=== PATIENT | female | born 1985 | race African-American/Black ===

== ENCOUNTER 2024-09-27 01:12 | Observation (INO) ==
--- NOTE | 2024-09-27 01:59 | Emergency Department Note ---
Impression & Plan Cholecystitis the patient will be evaluated by general surgery ED Provider Note NAME: QUINTEN MCKEON AGE: 39 SEX: Female INFORMANT: Patient ED PROVIDER(S): Dana Castillo DO CHIEF COMPLAINT: Epigastric pain PLAN: Disposition: the patient will be evaluated by general surgery MEDICAL DECISION MAKING: this is a 39-year-old female patient who presents to the emergency department after waking suddenly with severe epigastric abdominal pain that radiated up into her chest. She describes associated shortness of breath and nausea. Laboratory studies reveal no leukocytosis. The patient is anemic with a hemoglobin of 10.5 which is baseline for her. Renal function and glucose were normal. Troponin was negative. Patient was significantly hypertensive. Patient does have a history of hypertension. Patient went for CT angiogram of the chest, abdomen/pelvis. This was unremarkable for any acute aortic abnormality. There were gallstones. patient was given IV Dilaudid and IV Zofran for the pain in her abdomen which gave her significant relief. Patient had an ultrasound of the right upper quadrant to further evaluate the gallbladder. This was positive for acute cholecystitis. Care/management discussed with: Dr. Lira-general surgery Triage Nursing notes: reviewed and agree with them. Vital Signs: reviewed and remarkable for hypertension Chronic Medical/Social Conditions affecting care: hypertension Differential Diagnosis: aortic dissection, pancreatitis, gastritis, cholecystitis Diagnostics, independently interpreted by me: ECG: normal sinus rhythm at a rate of [address] segment ovation or signs of ischemia. There is no ectopy. Cardiac Monitoring: Normal sinus rhythm at a rate of 93 Imaging studies: CTA of the chest: As per [facility] CTA of the abdomen: As per [facility] right upper quadrant ultrasound:As per [facility] HPI: 39 year old Female arrives for evaluation of Epigastric abdominal pain. Epigastric abdominal pain that radiated up into her chest. She describes associated shortness of breath and nausea.. PAST MEDICAL HISTORY: hypertension, irritable bowel syndrome, [id number] diabetes, sleep apnea, SOCIAL HISTORY: patient works as a assistant infant toddler teacher, HOME MEDICATIONS: see list ALLERGIES: see list VITALS: See Below PHYSICAL EXAMINATION: HEENT: Head - normocephalic and atraumatic. Pupils are equal, round, and reactive to light. Extraocular eye muscles are intact, and sclera are anicteric. Nose - moist nasal mucosa without discharge. Mouth - moist buccal mucosa. Oropharynx is nonerythematous and there is no tonsillar exudate or edema noted. Neck: Supple; no cervical lymphadenopathy or thyromegaly Heart: Regular rate and rhythm. There is a normal S1 and S2 with no murmurs, clicks, or gallops appreciated. Lungs: Clear to auscultation bilaterally with no wheezes, rales, or rhonchi. Abdomen: Soft, Moderate tenderness to palpation in the epigastrium and right upper quadrant. There are no palpable pulsatile masses or hepatosplenomegaly. There is no guarding, rigidity, or rebound noted. Extremities: No evidence of cyanosis, clubbing, or edema. There are easily palpable peripheral pulses. Skin: warm and dry with good turgor and no rashes. Emergency department treatment: licensed occupational therapy assistant, IV Dilaudid, IV Zofran, IV normal saline drip emergency department course: The patient was evaluated in room C-9. A complete history and physical was performed. IV lock was initiated and labs were drawn as above. Patient had CT angiograms of the abdomen/pelvis and chest. She was given a dose of IV Dilaudid and IV Zofran for the pain. She then went on to have an ultrasound of the right upper quadrant. I started the patient on normal saline drip. I kept her n.p.o. I discussed the case with general surgery. Past Med/Surg History Problem List (Updated 09/27/24 @ 07:15 by Dana Castillo DO) Cholecystitis (Acute) Breast hypertrophy in female (Acute) Medical History COVID-19 Social History Smoking Status: Never smoker Preferred Language: Occitan Feels Safe at Home: Yes Allergies Allergies Allergy/AdvReac Type Severity Reaction Status Date / Time oseltamivir [From Tamiflu] Allergy Hives Unverified 07/17/24 10:59 Home Meds Home Medications Medication Instructions Recorded Confirmed albuterol sulfate 2.5 mg/3 mL 2.5 mg inhalation Q4 PRN wheeze 07/17/24 07/17/24 (0.083 %) solution for nebulization albuterol sulfate 90 mcg/actuation 2 puff inhalation Q6 PRN Wheezing 07/17/24 07/17/24 aerosol inhaler amlodipine 10 mg tablet 10 mg PO QAM 07/17/24 07/17/24 dicyclomine 10 mg capsule 10 mg PO TID PRN IBS pain 07/17/24 07/17/24 duloxetine 30 mg capsule,delayed 30 mg PO QAM 07/17/24 07/17/24 release hydrochlorothiazide 12.5 mg capsule 12.5 mg PO QAM 07/17/24 07/17/24 ibuprofen 200 mg tablet 800 mg PO Q6H PRN Pain 07/17/24 07/17/24 meclizine 12.5 mg tablet 12.5 mg PO TID PRN Dizziness 07/17/24 07/17/24 tirzepatide 5 mg/0.5 mL 5 mg subcut WK 07/17/24 07/17/24 subcutaneous pen injector (Addie) Results & Data (ED) Vital Signs Vital Signs - 24 hr 09/27/24 01:22 09/27/24 01:33 09/27/24 01:51 Temperature 36.6 C Temperature Source Temporal Artery Scan Pulse Rate 100 H 93 H Pulse Rate from SpO2 Sensor Pulse Rhythm Regular Pulse Strength Normal Respiratory Rate 18 Respiratory Effort / Characteristics Non-Labored Spontaneous Respiratory Depth Normal Respiratory Pattern Regular Blood Pressure 153/92 H Blood Pressure Mean 112 Pulse Oximetry 98 95 Oxygen Delivery Method Room Air Room Air Sepsis Recent Fever Within 48 Hours No Sepsis New/Unexplained Change in Mental Status No Sepsis Action Taken by Nursing No Action Required 09/27/24 02:16 09/27/24 02:33 09/27/24 03:30 Temperature Temperature Source Pulse Rate 90 88 85 Pulse Rate from SpO2 Sensor Pulse Rhythm Pulse Strength Respiratory Rate 18 17 15 Respiratory Effort / Characteristics Respiratory Depth Respiratory Pattern Blood Pressure 172/122 H 165/107 H 151/105 H Blood Pressure Mean 136 126 120 Pulse Oximetry 98 95 93 Oxygen Delivery Method Room Air Room Air Room Air Sepsis Recent Fever Within 48 Hours Sepsis New/Unexplained Change in Mental Status Sepsis Action Taken by Nursing 09/27/24 04:00 09/27/24 04:30 09/27/24 05:15 Temperature Temperature Source Pulse Rate 90 82 87 Pulse Rate from SpO2 Sensor Pulse Rhythm Pulse Strength Respiratory Rate 16 16 17 Respiratory Effort / Characteristics Respiratory Depth Respiratory Pattern Blood Pressure 164/133 H 148/96 H 155/102 H Blood Pressure Mean 139 131 119 Pulse Oximetry 95 95 97 Oxygen Delivery Method Room Air Room Air Sepsis Recent Fever Within 48 Hours Sepsis New/Unexplained Change in Mental Status Sepsis Action Taken by Nursing 09/27/24 05:30 09/27/24 05:41 09/27/24 06:06 Temperature Temperature Source Pulse Rate 86 89 84 Pulse Rate from SpO2 Sensor Pulse Rhythm Pulse Strength Respiratory Rate 14 17 Respiratory Effort / Characteristics Respiratory Depth Respiratory Pattern Blood Pressure Blood Pressure Mean Pulse Oximetry 91 96 Oxygen Delivery Method Sepsis Recent Fever Within 48 Hours Sepsis New/Unexplained Change in Mental Status Sepsis Action Taken by Nursing 09/27/24 07:01 09/27/24 07:06 Temperature Temperature Source Pulse Rate 93 H Pulse Rate from SpO2 Sensor 92 H Pulse Rhythm Pulse Strength Respiratory Rate 18 Respiratory Effort / Characteristics Respiratory Depth Respiratory Pattern Blood Pressure 132/100 Blood Pressure Mean 110 Pulse Oximetry 95 Oxygen Delivery Method Sepsis Recent Fever Within 48 Hours Sepsis New/Unexplained Change in Mental Status Sepsis Action Taken by Nursing Laboratory Data 09/27/24 01:31 09/27/24 01:31 Lab Results 09/27/24 Range/Units 01:31 WBC 9.34 (4.8-10.8) K/ul RBC 4.33 (4.20-5.40) M/uL Hgb 10.5 L (12.0-16.0) g/dl Hct 34.7 L (37.0-47.0) % MCV 80.1 (80.0-100.0) fL MCH 24.2 L (25.0-34.0) pg MCHC 30.3 L (32.0-36.0) g/dL RDW Std Deviation 43.0 (36.4-46.3) fL RDW Coeff of Dylon 14.8 H (11.5-14.5) % Plt Count 382 (130-400) K/uL MPV 10.8 (9.4-12.4) fL Immature Gran % (Auto) 0.2 % Neut % (Auto) 55.6 % Lymph % (Auto) 38.8 % Cloud % (Auto) 4.0 % Eos % (Auto) 0.9 % Baso % (Auto) 0.5 % Neut # (Auto) 5.20 (1.40-6.50) K/uL Lymph # (Auto) 3.62 H (1.20-3.40) K/uL Cloud # (Auto) 0.37 (0.11-0.59) K/uL Eos # (Auto) 0.08 (0.00-0.50) K/uL Baso # (Auto) 0.05 (0.00-0.20) K/uL Immature Gran # (Auto) 0.02 (0.01-0.20) K/uL Sodium 138 (136-145) mmol/L Potassium 3.7 (3.5-5.1) mmol/L Chloride 105 (98-107) mmol/L Carbon Dioxide 29 (21-32) mmol/L Anion Gap 4 (3-11) BUN 16 (6-23) mg/dl Creatinine 0.91 (0.6-1.2) mg/dl Est Cr Clr Drug Dosing 98.4 ml/min eGFR 83.33 BUN/Creatinine Ratio 17.6 (10-20) Glucose 99 (70-99(Fasting)) mg/dl Calcium 9.2 (8.6-10.3) mg/dl Total Bilirubin 0.3 (0.2-1.0) mg/dl AST 12 L (13-39) U/L ALT 8 (7-52) U/L Alkaline Phosphatase 66 (34-104) U/L Troponin I High Sens 3.4 (0-14) pg/ml Total Protein 7.5 (6.0-8.3) gm/dl Albumin 4.1 (3.4-5.0) gm/dl Globulin 3.4 (2.5-4.0) gm/dl Albumin/Globulin Ratio 1.2 (0.9-2) Lipase 20 (11-82) U/L Administered Medications Sodium Chloride (Nss) 500 mls @ 125 mls/hr IV .Q4H LAINEY Stop: 09/27/24 10:14 Last Admin: 09/27/24 06:26 Dose: 125 mls/hr Documented By: ALEC Discontinued Medications Hydromorphone HCl (Hydromorphone Inj 1 Mg/Ml Syringe) 1 mg IV NOW STA Stop: 09/27/24 01:54 Last Admin: 09/27/24 02:07 Dose: 1 mg Documented By: ALEC Ioversol (Optiray 320 125ml) 125 ml IV ONCE ONE Stop: 09/27/24 02:53 Last Admin: 09/27/24 02:52 Dose: 118 ml Documented By: ELMER Ondansetron HCl (Ondansetron Inj 2 Mg/Ml 2 Ml Vial) 4 mg IV NOW STA Stop: 09/27/24 01:54 Last Admin: 09/27/24 02:07 Dose: 4 mg Documented By: ALEC Imaging Data Radiologist's Impression: Chest CTA 09/27/24 01:51 EXAM: CT angio chest dissec wo/w con CLINICAL HISTORY: EPIGASTRIC PAIN EVAL FOR DISSECTION. TECHNIQUE: Contiguous 3.[address] angiographic images of the chest were acquired withand without the administration of intravenous contrast. Coronal and sagittal reconstructions were obtained. 118 ml Optiray 320 was administered for post-contrast images. One of these 3D techniques was utilized: Maximum Intensity Pixel (MIP), 3D Reconstructed Images, Volume Rendered Images, Surface Shaded Rendering. One of the following dose reduction techniques were utilized for this exam: Automated exposure control, adjustment of the mA and/or kV according to patient size, and use of iterative reconstruction. DLP: 3454.02 mGy-cm, CTDI: 72.84 mGy. COMPARISON: CTA dated 12/13/2022. FINDINGS: Aorta: Mild dilated ascending aorta measures 34 mm, follow-up is needed. No evidence of aneurysm, dissection, or significant atherosclerotic changes. The aortic arch and descending thoracic aorta are unremarkable. Pulmonary Arteries: The dilated pulmonary trunk measures 31 mm, which could be pulmonary hypertension, clinical correlation is needed. No evidence of pulmonary embolism. No stenosis or filling defects. Superior Vena Cava (SVC) and Inferior Vena Cava (IVC): Normal opacification and caliber. No evidence of thrombus or obstruction. Coronary Arteries: Coronary arteries are well-opacified. No significant stenosis or atherosclerotic changes. Mediastinum: No mediastinal mass or lymphadenopathy. Normal appearance of the thymus. Heart: Normal size and morphology of the heart. No pericardial effusion. Lungs: Lungs are clear with no evidence of consolidation, nodules, or masses. No pleural effusion or thickening. Bones: No fractures or lytic/sclerotic lesions of the visualized bony structures. Normal alignment and bone density. Soft Tissues: Normal appearance of the visualized soft tissues. No abnormal masses or fluid collections. The scanned upper abdomen shows gallstone. IMPRESSION: 1. Normal CT angiography of the chest. 2. Dilated pulmonary trunk measures 31 mm, could be pulmonary hypertension, clinical correlation is needed. 3. No evidence of significant vascular abnormalities. 4. No interval changes. 5. Gallstone noted. Electronically signed by Keshawn Santo 09-27-2024 04:16 AM Abdomen/Pelvis CTA 09/27/24 01:52 EXAM: CT angio abd pelvis wo/w con CLINICAL HISTORY: EPIGASTRIC PAIN EVAL FOR DISSECTION. TECHNIQUE: CT angiography of the abdomen and pelvis was performed with and without intravenous contrast using, the following protocol: axial images, and reconstructed coronal and sagittal images. Non-contrast images were initially acquired, followed by contrast-enhanced images in arterial and venous phases. 118 ml optiray 320 was administered using automated injection techniques. Bolus tracking was employed to optimize arterial phase imaging. For CTA's we need the post-processing techniques that constitute a CTA study. Physicians must state in their dictation:"One of these 3D techniques was utilized: Maximum Intensity Pixel (MIP), 3D Reconstructed Images, Volume Rendered Images, Surface Shaded Rendering. One of the following dose reduction techniques was utilized for this exam: Automated exposure control, adjustment of the mA and/or kV according to patient size, and use of iterative reconstruction. DLP: 3454.02 mGy-cm, CTDI: 72.84 mGy. COMPARISON: 07/17/2024 FINDINGS: Abdominal Aorta: The abdominal aorta is normal in caliber, with no evidence of aneurysm, dissection, or significant atherosclerotic disease. Celiac Artery and Branches: The celiac artery and its branches (left gastric artery, splenic artery, common hepatic artery) are patent without stenosis or aneurysm. Superior Mesenteric Artery (SMA): The SMA is patent, with normal origin and course. No evidence of stenosis, aneurysm, or dissection. Renal Arteries: Both renal arteries are patent with no evidence of stenosis, occlusion, or aneurysm. Normal enhancement of renal parenchyma. Inferior Mesenteric Artery (CORDELIA): The CORDELIA is patent with no evidence of stenosis or occlusion. Pelvic Arteries: The iliac arteries (common, internal, and external) are patent bilaterally without evidence of stenosis, occlusion, or aneurysm. Other Abdominal and Pelvic Vessels: The portal vein, splenic vein, and superior mesenteric vein are patent with normal enhancement. Solid Organs: Liver: Fatty liver, Normal in size, and shape. No focal lesions. Normal enhancement pattern. Gallbladder and Biliary System: Gallbladder is distended, showing dense solitary gallstone, no wall thickening. Bile ducts are normal in caliber. Pancreas: Normal in size and density. No masses or cysts. Normal enhancement. Spleen: Normal in size and density. No focal lesions. Normal enhancement. Kidneys and Adrenal Glands: Normal in size and shape. No renal masses or hydronephrosis. Adrenal glands are unremarkable. Normal enhancement. Bowel: No evidence of bowel obstruction or significant bowel wall thickening. No abnormal enhancement. Peritoneal and Retroperitoneal Structures: No free fluid or abnormal fluid collections were identified within the abdomen or pelvis. No lymphadenopathy was noted. Normal uterus with a small left unilocular ovarian cyst suggestive of a follicular cyst. Non-complicated single sigmoid colonic contrast-filled diverticulosis. Bones and Soft Tissues: Pelvic bones and soft tissues are unremarkable. No fractures or abnormal masses were identified. IMPRESSION: 1. Normal aorta and branches, no evidence of aneurysm or dissection. 2. Gallstone. 3. Left ovarian follicular cyst. 4. Non-complicated single sigmoid colonic contrast-filled diverticulosis. 5. fatty liver. Electronically signed by Keshawn Santo 09-27-2024 04:24 AM Gallbladder Ultrasound 09/27/24 04:36 EXAM: US gallbladder CLINICAL HISTORY: Epigastric pain with gallstones. TECHNIQUE: An ultrasound examination of the RUQ was performed using a high-frequency transducer. Scanning was performed with the patient in the supine position. COMPARISON: CT dated 07/17/2024 was reviewed. FINDINGS: The visualized part of the pancreas appeared unremarkable. Liver: Liver size: The liver is seen enlarged measuring 16 cm with increased echotexture. No evidence of focal lesions, cysts, or masses. Hepatic vasculature appears normal. Gallbladder: The gallbladder is visualized and appears normal in size and shape. Stones are seen within the gallbladder neck with increased wall thickness measuring up to 6 mm. No pericholecystic fluid was seen. Degroot's sign could not be properly assessed due to medication. Biliary Tree: Common bile duct diameter: 2.7 mm. The common bile duct is within normal limits in caliber and not dilated. No evidence of choledocholithiasis or biliary obstruction. Right Kidney: Right kidney size: Measures 11.8 cm. The right kidney appears normal in size with preserved corticomedullary differentiation. No evidence of hydronephrosis, renal cysts, or masses. Additional Findings: None. IMPRESSION: 1. Fatty enlarged liver. 2. Fixed cholelithiasis with increased gallbladder wall thickening suggesting acute cholecystitis. Degroot's sign could not be properly assessed due to medication. No pericholecystic fluid was seen. 3. The common bile duct is not dilated. RECOMMENDATIONS: Clinical correlation with symptoms and further evaluation as indicated. Electronically signed by Keshawn Santo 09-27-2024 05:59 AM Discharge Plan Visit Data Chief Complaint: Abdominal Pain Stated Complaint: PAIN IN UPPER ABDOMIN ED Provider: Dana Castillo Discharge Problem: Cholecystitis Forms Stand Alone [facility]: [facility] [employer] Prescriptions Prescriptions: No Action albuterol sulfate 2.5 mg /3 mL (0.083 %) solution for nebulization 2.5 mg inhalation Q4 PRN (Reason: wheeze) meclizine 12.5 mg tablet 12.5 mg PO TID PRN (Reason: Dizziness) amlodipine 10 mg tablet 10 mg PO QAM hydrochlorothiazide 12.5 mg capsule 12.5 mg PO QAM ibuprofen 200 mg Tablet 800 mg PO Q6H PRN (Reason: Pain) albuterol sulfate 90 mcg/actuation HFA aerosol inhaler 2 puff INHALATION Q6 PRN (Reason: Wheezing) Rx Instructions: when sick she uses every 4 hours prn dicyclomine 10 mg capsule 10 mg PO TID PRN (Reason: IBS pain) duloxetine 30 mg capsule,delayed release(DR/EC) 30 mg PO QAM Rx Instructions: with food Mounjaro 5 mg/0.5 mL pen injector 5 mg SUBCUT WK Rx Instructions: every thursday Referrals Referrals: Elliott Ireland MD [Primary Care Provider] -
[2024-09-27 02:06] LABS: Basophils # (auto) 0.05 K/uL (0.00-0.20); Basophils % (auto) 0.5 %; Eosinophils # (auto) 0.08 K/uL (0.00-0.50); Eosinophils % (auto) 0.9 %; Hematocrit (blood only) 34.7 % (37.0-47.0); Hemoglobin 10.5 g/dl (12.0-16.0); Immature Granulocytes # (auto) 0.02 K/uL (0.01-0.20); Immature Granulocytes % (auto) 0.2 %; Lymphocytes # (auto) 3.62 K/uL (1.20-3.40); Lymphocytes % (auto) 38.8 %; Mean Corpuscular Hemoglobin 24.2 pg (25.0-34.0); Mean Corpuscular Hgb Conc 30.3 g/dL (32.0-36.0); Mean Corpuscular Volume 80.1 fL (80.0-100.0); Mean Platelet Volume 10.8 fL (9.4-12.4); Monocytes # (auto) 0.37 K/uL (0.11-0.59); Neutrophils % (auto) 55.6 %; Platelet Count 382 K/uL (130-400); RDW Coefficient of Variation 14.8 % (11.5-14.5); Red Blood Count 4.33 M/uL (4.20-5.40); White Blood Count 9.34 K/ul (4.8-10.8)
[2024-09-27] MEDS: ONDANSETRON INJ 2 MG/ML 2 ML VIAL IV STA (02:07)
[2024-09-27] MEDS: HYDROmorphone INJ 1 MG/ML SYRINGE IV STA (02:07)
[2024-09-27 02:24] LABS: Albumin Globulin Ratio 1.2 (0.9-2); Albumin Level 4.1 gm/dl (3.4-5.0); BUN Creatinine Ratio 17.6 (10-20); Bilirubin,Total 0.3 mg/dl (0.2-1.0); Calcium 9.2 mg/dl (8.6-10.3); Creatinine Clr Calc Pharmacy 98.4 ml/min; Globulin 3.4 gm/dl (2.5-4.0); Potassium 3.7 mmol/L (3.5-5.1); Total Protein 7.5 gm/dl (6.0-8.3)
[2024-09-27 02:31] LABS: Troponin I High Sensitivity 3.4 pg/ml (0-14)
[2024-09-27] MEDS: OPTIRAY 320 125ml IV ONE (02:52)
--- NOTE | 2024-09-27 04:16 | CT Scan Report ---
EXAM: CT angio chest dissec wo/w con CLINICAL HISTORY: EPIGASTRIC PAIN EVAL FOR DISSECTION. TECHNIQUE: Contiguous 3.[address] angiographic images of the chest were acquired withand without the administration of intravenous contrast. Coronal and sagittal reconstructions were obtained. 118 ml Optiray 320 was administered for post-contrast images. One of these 3D techniques was utilized: Maximum Intensity Pixel (MIP), 3D Reconstructed Images, Volume Rendered Images, Surface Shaded Rendering. One of the following dose reduction techniques were utilized for this exam: Automated exposure control, adjustment of the mA and/or kV according to patient size, and use of iterative reconstruction. DLP: 3454.02 mGy-cm, CTDI: 72.84 mGy. COMPARISON: CTA dated 12/13/2022. FINDINGS: Aorta: Mild dilated ascending aorta measures 34 mm, follow-up is needed. No evidence of aneurysm, dissection, or significant atherosclerotic changes. The aortic arch and descending thoracic aorta are unremarkable. Pulmonary Arteries: The dilated pulmonary trunk measures 31 mm, which could be pulmonary hypertension, clinical correlation is needed. No evidence of pulmonary embolism. No stenosis or filling defects. Superior Vena Cava (SVC) and Inferior Vena Cava (IVC): Normal opacification and caliber. No evidence of thrombus or obstruction. Coronary Arteries: Coronary arteries are well-opacified. No significant stenosis or atherosclerotic changes. Mediastinum: No mediastinal mass or lymphadenopathy. Normal appearance of the thymus. Heart: Normal size and morphology of the heart. No pericardial effusion. Lungs: Lungs are clear with no evidence of consolidation, nodules, or masses. No pleural effusion or thickening. Bones: No fractures or lytic/sclerotic lesions of the visualized bony structures. Normal alignment and bone density. Soft Tissues: Normal appearance of the visualized soft tissues. No abnormal masses or fluid collections. The scanned upper abdomen shows gallstone. IMPRESSION: 1. Normal CT angiography of the chest. 2. Dilated pulmonary trunk measures 31 mm, could be pulmonary hypertension, clinical correlation is needed. 3. No evidence of significant vascular abnormalities. 4. No interval changes. 5. Gallstone noted. Electronically signed by Keshawn Santo 09-27-2024 04:16 AM
--- NOTE | 2024-09-27 04:25 | CT Scan Report ---
EXAM: CT angio abd pelvis wo/w con CLINICAL HISTORY: EPIGASTRIC PAIN EVAL FOR DISSECTION. TECHNIQUE: CT angiography of the abdomen and pelvis was performed with and without intravenous contrast using, the following protocol: axial images, and reconstructed coronal and sagittal images. Non-contrast images were initially acquired, followed by contrast-enhanced images in arterial and venous phases. 118 ml optiray 320 was administered using automated injection techniques. Bolus tracking was employed to optimize arterial phase imaging. For CTA's we need the post-processing techniques that constitute a CTA study. Physicians must state in their dictation:"One of these 3D techniques was utilized: Maximum Intensity Pixel (MIP), 3D Reconstructed Images, Volume Rendered Images, Surface Shaded Rendering. One of the following dose reduction techniques was utilized for this exam: Automated exposure control, adjustment of the mA and/or kV according to patient size, and use of iterative reconstruction. DLP: 3454.02 mGy-cm, CTDI: 72.84 mGy. COMPARISON: 07/17/2024 FINDINGS: Abdominal Aorta: The abdominal aorta is normal in caliber, with no evidence of aneurysm, dissection, or significant atherosclerotic disease. Celiac Artery and Branches: The celiac artery and its branches (left gastric artery, splenic artery, common hepatic artery) are patent without stenosis or aneurysm. Superior Mesenteric Artery (SMA): The SMA is patent, with normal origin and course. No evidence of stenosis, aneurysm, or dissection. Renal Arteries: Both renal arteries are patent with no evidence of stenosis, occlusion, or aneurysm. Normal enhancement of renal parenchyma. Inferior Mesenteric Artery (CORDELIA): The CORDELIA is patent with no evidence of stenosis or occlusion. Pelvic Arteries: The iliac arteries (common, internal, and external) are patent bilaterally without evidence of stenosis, occlusion, or aneurysm. Other Abdominal and Pelvic Vessels: The portal vein, splenic vein, and superior mesenteric vein are patent with normal enhancement. Solid Organs: Liver: Fatty liver, Normal in size, and shape. No focal lesions. Normal enhancement pattern. Gallbladder and Biliary System: Gallbladder is distended, showing dense solitary gallstone, no wall thickening. Bile ducts are normal in caliber. Pancreas: Normal in size and density. No masses or cysts. Normal enhancement. Spleen: Normal in size and density. No focal lesions. Normal enhancement. Kidneys and Adrenal Glands: Normal in size and shape. No renal masses or hydronephrosis. Adrenal glands are unremarkable. Normal enhancement. Bowel: No evidence of bowel obstruction or significant bowel wall thickening. No abnormal enhancement. Peritoneal and Retroperitoneal Structures: No free fluid or abnormal fluid collections were identified within the abdomen or pelvis. No lymphadenopathy was noted. Normal uterus with a small left unilocular ovarian cyst suggestive of a follicular cyst. Non-complicated single sigmoid colonic contrast-filled diverticulosis. Bones and Soft Tissues: Pelvic bones and soft tissues are unremarkable. No fractures or abnormal masses were identified. IMPRESSION: 1. Normal aorta and branches, no evidence of aneurysm or dissection. 2. Gallstone. 3. Left ovarian follicular cyst. 4. Non-complicated single sigmoid colonic contrast-filled diverticulosis. 5. fatty liver. Electronically signed by Keshawn Santo 09-27-2024 04:24 AM
--- OUTSIDE RECORDS SUMMARY | 2024-09-27 05:54 | External Medical Summary | Summary of Care ---
Author Name Unknown Organization [facility] Address [address] [place] [address] Phone [phone] Care Team Providers Care Soda Column Operator Name Role Phone Nona Wiggins DO Primary Care Provider Encounter Details Date Type Department Care Team (Late st Contact Info) Description 08/09/2024 12:00 PM EST Telemedicine Nutrition & Weight Management, [facility] [address] [place] [id number] Yoko Rubio PA-C [address] [place] [id number] Morbid obesity due to excess calories (HCC)* Allergies Active Allergy Reactions Criticality Noted Date Comments Oseltamivir 10/17/2019 hive documented as of this encounter (statuses as of 08/09/2024) Medications ibuprofen (MOTRIN) 200 MG Tablet Take 2 Tablets by mouth every 8 hours as needed for Pain. Active traZODone HCl 50 MG Oral Tablet (Desyrel) as needed for Sleep. 3 Active Dicyclomine HCl 10 MG Oral Capsule (Bentyl)Indicatio ns:Irritable bowel syndrome with diarrhea Take 1 Capsule by mouth 3 times a day as needed for Pain. 90 Capsule 6 3 Active Albuterol Sulfate HFA 108 (90 Base) MCG/ACT Inhalation Aerosol Solution Inhale 2 Puffs by mouth every 6 hours as needed for Wheezing. 18 g 3 Active Meclizine HCl 12.5 MG Oral Tablet (Antivert) Take 1 Tablet by mouth 3 times a day as needed for Dizziness. Will cause drowsiness 30 Tablet 1 4 Active DULoxetine HCl 30 MG Oral Capsule Delayed Release Particles (Cymbalta) Take 1 Capsule by mouth in the morning. With food. 30 Capsule 4 Active Mounjaro 5 MG/0.5ML Subcutaneous Solution Pen-injector (Tirzepatide)Tiarra cations:Type 2 diabetes mellitus without complication, without long-term current use of insulin (HCC) Inject 5 mg under the skin once a week. 6 mL 1 4 Active Albuterol Sulfate (2.5 MG/3ML) 0.083% Inhalation Nebulization Solution (Proventil)Indica tions:Acute exacerbation of mild persistent extrinsic asthma Inhale 1 Vial via nebulizer every 4 hours as needed for Wheezing. 60 mL 1 4 Active hydroCHLOROthiazi de 12.5 MG Oral CapsuleIndication s:HTN, goal below 130/80 TAKE 1 CAPSULE BY MOUTH EVERY MORNING 90 Capsule 1 4 Active amLODIPine Besylate 10 MG Oral Tablet (Norvasc)Indicati ons:Essential hypertension with goal blood pressure less than 130/80 TAKE 1 TABLET BY MOUTH EVERY DAY IN THE MORNING 90 Tablet 1 4 Active documented as of this encounter (statuses as of 08/09/2024) Active Problems Problem Noted Date Diagnosed Date Body mass index (BMI) of 40.0 to 44.9 in adult 0 12/21/2023 Overview: Per Obesity protocol - Per Obesity protocol Food insecurity 05/25/2023 Overview: Per [facility] Protocol Type 2 diabetes mellitus wit hout complication, without long-term current use of insulin 04/08/2023 Essential hypertension with goal blood pressure less than 130/80 03/11/2023 Morbid obesity due to excess calories 11/20/2022 Recurrent major depressive disorder, in remissio n 11/28/2021 Nasal polyp 10/17/2019 Major depressive disorder, recurrent, unspecifie d 08/25/2019 PETER (obstructive sleep apnea) 07/13/2019 Nocturnal hypoxemia 07/13/2019 Sleep paralysis, recurrent isolated 02/08/2019 Sleep-related hallucinations 02/08/2019 Persistent insomnia 02/08/2019 Hypersomnolence disorder 02/08/2019 Asthma, mild persistent 07/23/2018 Irritable bowel syndrome with diarrhea 8 RLS (restless legs syndrome) 02/23/2015 documented as of this encounter (statuses as of 08/09/2024) Resolved Problems Problem Noted Date Diagnosed Date Resolved Date BMI 45.0-49.9, adult 12/23/2021 024 Overview: Per Obesity protocol Class 3 severe obesity due t o excess calories without serious comorbidity with body mass index (BMI) of 45.0 to 49.9 in adult 11/28/2021 Overview: Per Obesity protocol Food insecurity 04/22/2021 06/26/2022 Overview: Per [facility] Protocol Gallstones 09/29/2018 10/17/2019 Body mass index (BMI) of 40. 0 to 44.9 in adult 08/25/2017 12/26/2021 Overview: Per Obesity protocol #1 Asthma in remission 02/23/2015 07/23/20 18 documented as of this encounter (statuses as of 08/09/2024) Immunizations Name Administration Dates Next Due COVID-19 mRNA, LNP-s, No Pre serve, 2-Dose Series ([employer]) 11/30/2020,11/16/2020 PPD 12/11/2020,11/10/2019,02/23/2015 Pneumococcal Polysaccharide PPV23 (Pneumovax) 09/28/2015 Seasonal Influenza, PF, 6 M & above, IM , (FluLaval or Fluzone) 07/23/2018 Seasonal Influenza, Quadriva lent, No Preserve, IM 05/20/2017,06/28/2015 TDAP (age 10 and older)(Boostrix) 07/25/2011 documented as of this encounter Social History Tobacco Use Types Packs/Day Years Used Date Smoking Tobacco: Never Smokeless Tobacco: Never Alcohol Use Standard Drinks/Week Comments Yes 0 (1 standard drink = 0.6 oz pur e alcohol) weekends PHQ-2 Answer Date Recorded PHQ-2 Score -1 06/03/2020 Hunger Vital Sign Answer Date Recorded Within the past 12 months, y ou worried that your food would run out before you got the money to buy more. Sometimes true Within the past 12 months, t he food you bought just didn't last and you didn't have money to get more. Sometimes true Childcare Answer Date Recorded Do you feel overwhelmed with taking care of a child, family member or friend? No 05/01/2023 Does your family need help f inding childcare? (Household - for ages 0-17 years) Not on file 05/01/2023 Clothing Answer Date Recorded Have you been unable to get clothing when it was really needed? No 05/01/2023 Is your family able to get c lothes or diapers when needed? (Household - for ages 0-17 years) Not on file 05/01/2023 Personal Safety Answer Date Recorded Do you feel unsafe or have concerns for your saf ety? No 05/01/2023 Do you have concerns for you r family's safety? (Household - for ages 0-17 years) Not on file 05/01/2023 Utilities Answer Date Recorded Do you have trouble paying y our heating, water, or electric bill? (Adult - for ages 18 years and over) Not on file 05/16/2024 Is your family able to pay t he heat, water, or electric bill? (Household - for ages 0-17 years) Not on file 05/16/2024 Does your family have access to good internet? (Household - for ages 0-17 years) Not on file 05/16/2024 Employment Status Answer Date Recorded Are you unemployed or without regular income? No 05/01/2023 Does the household have a re gular source of income? (Household - for ages 0-17 years) Not on file 05/01/2023 Social Connections Answer Date Recorded How often do you feel lonely or isolated from those around you? (Adult - for ages 18 years and over) Not on file 05/16/2024 Financial Resource Strain Answer Date R ecorded Do you have any trouble payi ng for your medications, or do you think you might in the future? No 05/01/2023 Does your family have troubl e paying for medicine? (Household - for ages 0-17 years) Not on file 05/01/2023 Transportation Needs Answer Date Record ed READ ONLY Do you have troubl e getting a ride to medical visits or work? Never True 05/01/2023 Does your family have a hard time getting a ride to doctors visits? (Household - for ages 0-17 years) Not on file 05/01/2023 Has lack of transportation k ept you from medical appointments, meetings, work, or from getting things needed for daily living? Check all that apply. (Adult - for ages 18 years and over) Not on file 05/01/2023 Do you (or your family) have trouble finding or paying for a ride (transportation)? (Household - for ages 0-17 years) Not on file 05/01/2023 Housing Stability Answer Date Recorded Do you currently live in a s helter or have no steady place to sleep at night? No 05/01/2023 READ ONLY Do you think you a re at risk of becoming homeless? No 05/01/2023 Does your family worry about paying for your home or becoming homeless? (Household - for ages 0-17 years) Not on file 0 05/01/2023 Are you homeless or worried that you might be in the future? (Adult - for ages 18 years and over) Not on file 3 Are you (or your family) nate eless or worried that you might be in the future? (Household - for ages 0-17 years) Not on file Food Insecurity Answer Date Recorded Do you need food for this week? No 05/01/2023 Are you able to get enough f ood for your family? (Household - for ages 0-17 years) Not on file 05/01/2023 Does your family need food t his week? (Household - for ages 0-17 years) Not on file 05/01/2023 Do you always have enough fo od for your family? (Household - for ages 0-17 years) Not on file 05/01/2023 Comments No Sex and Gender Information Value Date Recorded Sex Assigned at Female 08/25/2019 11:09 AM EST Legal Sex Female 6:03 AM EST Gender Identity Female 08/25/2019 11:09 AM EST Sexual Orientation Choose not to disclose 2018 11:09 AM EST Occupation Industry Job Start Date Job End Date student Not on file Not on file Not on file documented as of this encounter Progress Notes * Yoko Rubio PA-C - 08/09/2024 12:03 PM EST [facility] Note Behavior Class Patient location: HOME. I was in a hospital or clinic location. After connecting through M[employer]ie,patient was verified with two unique identifiers. Patient (or authorized legal senior account representative) was then informed that this was a Telemedicine visit and being conducted confidentially over secure lines. Methods to assure confidentiality were taken. Patient acknowledged consent and understanding of pr ivacy and security of the Telemedicine visit. The patient agreed to participate. There are no exam notes on file for this visit. Sheila Smith presents in follow up to the comprehensive weight management clinic. The patient is a 39 year old female Wt Readings from Last 6 Encounters: 06/16/24 116.7 kg (257 lb 3.2 oz) 06/03/24 116.5 kg (256 lb 12.8 oz) 01/12/24 109.8 kg (242 lb) 11/25/23 111.2 kg (245 lb 3.2 oz) 09/24/23 113.9 kg (251 lb) 08/28/23 113.8 kg (250 lb 12.8 oz) Patient is receiving ongoing education regarding dietary and physical modifications for weight loss. Patient is interested in the following treatment options for obesity: medical management and surgical options including Devon-en-Y gastric bypass, biliopancreatic diversion with duodenal switch, or laparoscopic sleeve gastrectomy. - Initial clinic visit 05/23/2021. Weight at that time was 261 lbs - Today's weight: unsure lbs 08/09/24 -Behavior class -on Mounjaro 5mg -working on eating behaviors 06/16/24 -individual nutrition class 06/03/24 -on Ozempic 0.5mg -tolerating well -interested in surgery program still but struggled with scheduling -has social anxiety 05/19/23 -Behavior class -on Ozempic 0.25mg - tolerating well -working on portion control - using plates that have MyPlate on it 04/15/23 -Nutrition class -tried for saxenda, tried for ozempic-- ozempic was hard to find but thinks it was covered 03/05/2023 -re establish -she would like to restart the surgery program -she did get her CPAP -she hasn't been able to get ozempic 04/15/22 -Nutrition class 05/23/2021 -initial visit - re establish Visit (06/17/2018) - pt is interested in possible bariatric surgery but would like to consider medication options first Patient Active Problem List Diagnosis RLS (restless legs syndrome) Irritable bowel syndrome with diarrhea Asthma, mild persistent Sleep paralysis, recurrent isolated Sleep-related hallucinations Persistent insomnia Hypersomnolence disorder PETER (obstructive sleep apnea) Nocturnal hypoxemia Major depressive disorder, recurrent, unspecified (HCC) Nasal polyp Recurrent major depressive disorder, in remission ([facility]) Morbid obesity due to excess calories ([facility]) Essential hypertension with goal blood pressure less than 130/80 Type 2 diabetes mellitus without complication, without long-term current use of insulin ([facility]) Food insecurity Body mass index (BMI) of 40.0 to 44.9 in adult ([facility]) Review of Systems: The patient denies any chest pain, shortness of breath, palpitations or ankle edema. Since the lastvisit there have been no problems with Abdominal pain / cramps and Diarrhea. Current Medications: Current Outpatient Medications Medication Sig Dispense Refill ibuprofen (MOTRIN) 200 MG Tablet Take 2 Tablets by mouth every 8 hours as needed for Pain. traZODone HCl 50 MG Oral Tablet (Desyrel) as needed for Sleep. (Patient not taking: Reported on 06/16/2024) Dicyclomine HCl 10 MG Oral Capsule (Bentyl) Take 1 Capsule by mouth 3 times a day as needed for Pain. 90 Capsule 6 Albuterol Sulfate HFA 108 (90 Base) MCG/ACT Inhalation Aerosol Solution Inhale 2 Puffs by mouth every 6 hours as needed for Wheezing. 18 g 0 Meclizine HCl 12.5 MG Oral Tablet (Antivert) Take 1 Tablet by mouth 3 times a day as needed for Dizziness. Will cause drowsiness 30 Tablet 1 DULoxetine HCl 30 MG Oral Capsule Delayed Release Particles (Cymbalta) Take 1 Capsule by mouth in the morning. With food. 30 Capsule 0 Mounjaro 5 MG/0.5ML Subcutaneous Solution Pen-injector (Tirzepatide) Inject 5 mg under the skin once a week. 6 mL 1 Albuterol Sulfate (2.5 MG/3ML) 0.083% Inhalation Nebulization Solution (Proventil) Inhale 1 Vial via nebulizer every 4 hours as needed for Wheezing. 60 mL 1 hydroCHLOROthiazide 12.5 MG Oral Capsule TAKE 1 CAPSULE BY MOUTH EVERY MORNING 90 Capsule 1 amLODIPine Besylate 10 MG Oral Tablet (Norvasc) TAKE 1 TABLET BY MOUTH EVERY DAY IN THE MORNING 90 Tablet 1 No current facility-administered medications for this visit. Water intake: yes Current diet: Breakfast-- 2 string cheese OR orange OR apple Snack-- skips Lunch-- meal service lunch - pre-portioned Snack-- skips Dinner-- protein, veggie Snack-- skips Drinks-- water Meals Away from Home-- 1-2x per week Type of exercise: ADL Weight loss Pharmacotherapy: yes Mounjaro 5mg There were no vitals taken for this visit. PHYSICAL EXAMINATION: General: Patient awake alert and oriented. Patient is well appearing and in no acute distress. Skin: No rashes. HEENT: Head is atraumatic, normocephalic. EOMs intact Abdomen: Obese Neuro: No focal deficits Psych: Appropriate mood and affect. Assessment and Plan: Abnormal weight gain / There is no height or weight on file to calculate BMI. / Morbid obesity : - Would like to proceed with medical management and surgical options including Devon-en-Y gastric bypass, biliopancreatic diversion with duodenal switch, or laparoscopic sleeve gastrectomy - Barriers are consistency - Motivators are feeling better overall, avoiding/reducing co-morbid conditions - The patient was encouraged to to avoid all fruit juices and regular sodas, consume at least 64 ounces of water per day, keep food logs and get weighed on a weekly basis. They were encouraged to increase physical activity as prescribed. - Handouts regarding nutrition and physical activity were provided, as appropriate. Goals for next month: - Practice what you learned in the classes - Continue with current diet plan - Continue with your exercises and increase as much as possible Diagnoses and all orders for this visit: Morbid obesity due to excess calories (HCC) -enrolled in surgery program -continue Mounjaro 5mg Type 2 diabetes mellitus without complication, without long-term current use of insulin (HCC) Abnormal weight gain PETER -on CPAP Mild persistent without complication -Using venotlin inhaler PRN Restless leg syndrome -symptoms improved without medication. Recurrent major depressive disorder -continue trazodone, cymbalta Irritable bowel syndrome with diarrhea -Bentyl 10 mg TID PRN for pain Discussed possible GI side effects with GLP-1 Hypertension Continue amlodipine The Possibility of bariatric surgery: The patient attended Behavior Class today regarding bariatric surgery. Patients were provided with bariatric educational materials. We reviewed the steps that need to be completed prior to moving on to see the surgeon. These steps include: tobacco cessation, modest weight loss, attendance at 2 support groups, payment of program fee, required educational sessions and completion of all ordered medical testing. The behavioral changes required for success after bariatric surgery were reviewed including: eatingslowly, eating small frequent meals, conversion to sugar-free beverages, drinking sufficient water but never with a meal, and caffeine reduction. Information regarding postoperative diet progression (stages 1 thru 4) was provided. Specifics regarding portion guidelines, fat and sugar restriction, fluid and protein requirements were reviewed. The patient was made aware of the importance of adherence to diet for successful weight loss management and prevention of postoperative complications. The need for vitamin and mineral supplementation postoperatively was reviewed. The 2-week pre-surgery liquid diet was also reviewed. Patients are aware they will need a GREEN LIGHT from the Registered Dietitian to proceed to see the surgeon. Behavioral Medicine evaluation was discussed. The patients are aware of the need for a GREEN light to progress to see the surgeon. The patient was instructed to call in the meantime with any concerns or questions prior to patient's upcoming visit. The patient agreed to try the plan as discussed and return in 1 month. They were encouraged to callor send a patient portal message in the meantime with any questions or concerns prior to their nextclinic visit. I spent a total of 20 minutes on the date of service in preparation, delivery, and documentation ofthe care provided to Sheila Smith excluding any time spent in the performance of separately billed services. This included but was no limited to providing counseling about the benefits of weight loss, about their nutritional status, detailed explanations about calorie count, types of nutrients to choose, and composition of the meals. Motivational interview provided in order to prepare the patient to achieve future goals. Yoko PRUETT, MPH [facility] ([facility]) documented in this encounter Plan of Treatment Health Maintenance Due Date Last Done Comments Diabetic Eye Exam 2005 Diabetic Foot Exam 2005 Hepatitis B Vaccine (1 of 3 - 19+ 3-dose series) 2006 Pneumococcal Vaccine: Pediatrics (0 to 5 Years) and At-Risk Patients (6 to 64 Years) (2 of 2 - PCV) 09/28/2016 09/28/2015 HPV/Co-Test 2017 *SPIROMETRY ONCE FOR ASTHMA-ADULT 07/25/2018 Depression Monitoring 10/17/2020 10/17/2019 DTap/Tdap Vaccines (2 - Td or Tdap) 07/25/2021 07/25/2011 Cervical Cancer Screening 05/02/2023 Pap Smear 05/02/2023 05/02/2020 Albumin/Creatinine Ratio 04/06/2024 04/06/2023 COVID-19 Vaccine (2023- season) 2024 11/30/2020, 11/16/2020 Influenza Vaccine (FLU shot) (#1) 2024 07/23/2018, 05/20/2017, 06/28/2015 HbA1c 10/14/2024 04/13/2024, 04/06/2023 GFR 04/13/2025 04/13/2024, 03/15, 11/10/2022, Additional history exists HPV (Gardasil) Vaccine Aged Out No lo nger eligible based on patient's age to complete this topic MENINGOCOCCAL (MENACTRA/MENVEO) Aged Out No longer eligible based on patient's age to complete this topic documented as of this encounter Medical Devices Not on filedocumented as of this encounter Visit Diagnoses Diagnosis Morbid obesity due to excess calories (HCC)- Primary documented in this encounter Care Teams Soda Column Operator Relationship Specialty Start Date End Date Nona Wiggins DO [address] [place], [place] [id number] PCP - General Family Medicine 03/25/24 documented as of this encounter
--- NOTE | 2024-09-27 06:01 | Ultrasound Report ---
EXAM: US gallbladder CLINICAL HISTORY: Epigastric pain with gallstones. TECHNIQUE: An ultrasound examination of the RUQ was performed using a high-frequency transducer. Scanning was performed with the patient in the supine position. COMPARISON: CT dated 07/17/2024 was reviewed. FINDINGS: The visualized part of the pancreas appeared unremarkable. Liver: Liver size: The liver is seen enlarged measuring 16 cm with increased echotexture. No evidence of focal lesions, cysts, or masses. Hepatic vasculature appears normal. Gallbladder: The gallbladder is visualized and appears normal in size and shape. Stones are seen within the gallbladder neck with increased wall thickness measuring up to 6 mm. No pericholecystic fluid was seen. Degroot's sign could not be properly assessed due to medication. Biliary Tree: Common bile duct diameter: 2.7 mm. The common bile duct is within normal limits in caliber and not dilated. No evidence of choledocholithiasis or biliary obstruction. Right Kidney: Right kidney size: Measures 11.8 cm. The right kidney appears normal in size with preserved corticomedullary differentiation. No evidence of hydronephrosis, renal cysts, or masses. Additional Findings: None. IMPRESSION: 1. Fatty enlarged liver. 2. Fixed cholelithiasis with increased gallbladder wall thickening suggesting acute cholecystitis. Degroot's sign could not be properly assessed due to medication. No pericholecystic fluid was seen. 3. The common bile duct is not dilated. RECOMMENDATIONS: Clinical correlation with symptoms and further evaluation as indicated. Electronically signed by Keshawn Santo 09-27-2024 05:59 AM
[2024-09-27] MEDS: SODIUM CHLORIDE 0.9% 500 ML IV SCH (06:26)
--- NOTE | 2024-09-27 07:50 | History & Physical Report ---
Date of Service September 27, 2024 Assessment & Plan (1) Acute calculous cholecystitis: Plan 39 yo female with sudden onset of epigastric pain with nausea and chest pain with imaging showing Acute cholecystitis with stone in gallbladder neck. CTA unremarkable. No leukocytosis. T. bili and lfts and lipase wnl. Exam with tenderness in RUQ and epigastrium. Discussed imaging findings with patient. Discussed indication for laparoscopic cholecystectomy, risks of procedure, exp ected recovery and restrictions. Informed consent obtained. Will proceed with laparoscopic cholecystectomy today at earliest convenience. Discussed with Dr. sanders who will evaluate patient in preop. History of Present Illness Chief Complaint: Epigastric abdominal pain Primary Care Provider: Elliott Ireland MD Sheila is a pleasant 39 yo female with history of hypertension, asthma, depression, prediabetes who presented to emergency department last evening due to sudden onsent of epigastric abdominal pain that woke her up. Associated nausea but no vomiting. Pain was in epigastrium with some bloating and radiated to her chest. Pain about 8/10. Some shortness of breath due to the abdominal pain but no persistent chest pain , pressure or shortness of breath. Was feeling completely normal yesterday during the day. KNew she had gallstones but no prior gallbladder issues. Has IBS with intermittent constipation and diarrhea. Denies fever, chills, vomiting, changes in bowel habits, blood in stools, acholic stools, difficulty urinating or blood in urine. On Mounjaro since June, takes weekly. Last dose was last Thursday. Was on Ozempic prior to that but not consistent. has lost about 20 pounds with the two medications. No blood thinning agents. History of two prior c-sections. Currently feeling much better. pain about 1/10 in epigastrium and RUQ. No nausea. Allergies Allergy/AdvReac Type Severity Reaction Status Date / Time oseltamivir [From Tamiflu] Allergy Hives Unverified 09/27/24 08:44 Home Medications Medication Instructions Recorded Confirmed Type albuterol sulfate 2.5 mg/3 mL 2.5 mg inhalation Q4 PRN wheeze 07/17/24 09/27/24 History (0.083 %) solution for nebulization albuterol sulfate 90 mcg/actuation 2 puff inhalation Q6 PRN Wheezing 07/17/24 09/27/24 History aerosol inhaler amlodipine 10 mg tablet 10 mg PO QAM 07/17/24 09/27/24 History duloxetine 30 mg capsule,delayed 30 mg PO QAM 07/17/24 09/27/24 History release hydrochlorothiazide 12.5 mg capsule 12.5 mg PO QAM 07/17/24 09/27/24 History tirzepatide 5 mg/0.5 mL 5 mg subcut WK 07/17/24 09/27/24 History subcutaneous pen injector (Eduunedward) Past Med/Surg History Problem List (Updated 09/27/24 @ 08:43 by Katya Ames PA-C) Acute calculous cholecystitis Cholecystitis (Acute) Breast hypertrophy in female (Acute) Medical History COVID-19 Social History Smoking Status: Never smoker Preferred Language: Urdu Feels Safe at Home: Yes Review of Systems Review of Systems: All systems reviewed & are unremarkable except as noted in HPI & below Physical Exam Constitutional: WD/WN, vitals as above + obese, cooperative and comfortable; no acute distress and not ill appearing Respiratory: normal respiratory effort, lungs clear to auscultation Cardiovascular: RRR, no murmur, no edema Gastrointestinal (Abdomen): Inspection/Auscultation: abdomen normal to inspection; abdomen not distended Percussion/Palpation: + abdomen tender (RUQ and epigastrium) and abdomen soft; no guarding, abdomen not rigid and abdomen not firm Skin: no rashes, warm and dry no jaundice Psychiatric: A+Ox3, euthymic affect Results & Data Results & Data Vital Signs (Past 12 Hours) Vital Signs Temp Pulse Resp BP Pulse Ox O2 Del Method 09/27/24 07:30 154/105 H 09/27/24 07:30 81 16 97 Room Air 09/27/24 07:06 93 H 18 95 09/27/24 07:01 132/100 09/27/24 06:06 84 17 96 09/27/24 05:41 89 09/27/24 05:30 86 14 91 09/27/24 05:15 87 17 155/102 H 97 09/27/24 04:30 82 16 148/96 H 95 Room Air 09/27/24 04:00 90 16 164/133 H 95 Room Air 09/27/24 03:30 85 15 151/105 H 93 Room Air 09/27/24 02:33 88 17 165/107 H 95 Room Air 09/27/24 02:16 90 18 172/122 H 98 Room Air 09/27/24 01:51 95 Room Air 09/27/24 01:33 93 H 09/27/24 01:22 36.6 C 100 H 18 153/92 H 98 Room Air Laboratory Results 09/27/24 Range/Units 01:31 WBC 9.34 (4.8-10.8) K/ul RBC 4.33 (4.20-5.40) M/uL Hgb 10.5 L (12.0-16.0) g/dl Hct 34.7 L (37.0-47.0) % MCV 80.1 (80.0-100.0) fL MCH 24.2 L (25.0-34.0) pg MCHC 30.3 L (32.0-36.0) g/dL RDW Std Deviation 43.0 (36.4-46.3) fL RDW Coeff of Dylon 14.8 H (11.5-14.5) % Plt Count 382 (130-400) K/uL MPV 10.8 (9.4-12.4) fL Immature Gran % (Auto) 0.2 % Neut % (Auto) 55.6 % Lymph % (Auto) 38.8 % [place] % (Auto) 4.0 % Eos % (Auto) 0.9 % Baso % (Auto) 0.5 % Neut # (Auto) 5.20 (1.40-6.50) K/uL Lymph # (Auto) 3.62 H (1.20-3.40) K/uL [place] # (Auto) 0.37 (0.11-0.59) K/uL Eos # (Auto) 0.08 (0.00-0.50) K/uL Baso # (Auto) 0.05 (0.00-0.20) K/uL Immature Gran # (Auto) 0.02 (0.01-0.20) K/uL Sodium 138 (136-145) mmol/L Potassium 3.7 (3.5-5.1) mmol/L Chloride 105 (98-107) mmol/L Carbon Dioxide 29 (21-32) mmol/L Anion Gap 4 (3-11) BUN 16 (6-23) mg/dl Creatinine 0.91 (0.6-1.2) mg/dl Est Cr Clr Drug Dosing 98.4 ml/min eGFR 83.33 BUN/Creatinine Ratio 17.6 (10-20) Glucose 99 (70-99(Fasting)) mg/dl Calcium 9.2 (8.6-10.3) mg/dl Total Bilirubin 0.3 (0.2-1.0) mg/dl AST 12 L (13-39) U/L ALT 8 (7-52) U/L Alkaline Phosphatase 66 (34-104) U/L Troponin I High Sens 3.4 (0-14) pg/ml Total Protein 7.5 (6.0-8.3) gm/dl Albumin 4.1 (3.4-5.0) gm/dl Globulin 3.4 (2.5-4.0) gm/dl Albumin/Globulin Ratio 1.2 (0.9-2) Lipase 20 (11-82) U/L Diagnostic Findings EXAM: CT angio abd pelvis wo/w con CLINICAL HISTORY: EPIGASTRIC PAIN EVAL FOR DISSECTION. TECHNIQUE: CT angiography of the abdomen and pelvis was performed with and without intravenous contrast using, the following protocol: axial images, and reconstructed coronal and sagittal images. Non-contrast images were initially acquired, followed by contrast-enhanced images in arterial and venous phases. 118 ml optiray 320 was administered using automated injection techniques. Bolus tracking was employed to optimize arterial phase imaging. For CTA's we need the post-processing techniques that constitute a CTA study. Physicians must state in their dictation:"One of these 3D techniques was utilized: Maximum Intensity Pixel (MIP), 3D Reconstructed Images, Volume Rendered Images, Surface Shaded Rendering. One of the following dose reduction techniques was utilized for this exam: Automated exposure control, adjustment of the mA and/or kV according to patient size, and use of iterative reconstruction. DLP: 3454.02 mGy-cm, CTDI: 72.84 mGy. COMPARISON: 07/17/2024 FINDINGS: Abdominal Aorta: The abdominal aorta is normal in caliber, with no evidence of aneurysm, dissection, or significant atherosclerotic disease. Celiac Artery and Branches: The celiac artery and its branches (left gastric artery, splenic artery, common hepatic artery) are patent without stenosis or aneurysm. Superior Mesenteric Artery (SMA): The SMA is patent, with normal origin and course. No evidence of stenosis, aneurysm, or dissection. Renal Arteries: Both renal arteries are patent with no evidence of stenosis, occlusion, or aneurysm. Normal enhancement of renal parenchyma. Inferior Mesenteric Artery (CORDELIA): The CORDELIA is patent with no evidence of stenosis or occlusion. Pelvic Arteries: The iliac arteries (common, internal, and external) are patent bilaterally without evidence of stenosis, occlusion, or aneurysm. Other Abdominal and Pelvic Vessels: The portal vein, splenic vein, and superior mesenteric vein are patent with normal enhancement. Solid Organs: Liver: Fatty liver, Normal in size, and shape. No focal lesions. Normal enhancement pattern. Gallbladder and Biliary System: Gallbladder is distended, showing dense solitary gallstone, no wall thickening. Bile ducts are normal in caliber. Pancreas: Normal in size and density. No masses or cysts. Normal enhancement. Spleen: Normal in size and density. No focal lesions. Normal enhancement. Kidneys and Adrenal Glands: Normal in size and shape. No renal masses or hydronephrosis. Adrenal glands are unremarkable. Normal enhancement. Bowel: No evidence of bowel obstruction or significant bowel wall thickening. No abnormal enhancement. Peritoneal and Retroperitoneal Structures: No free fluid or abnormal fluid collections were identified within the abdomen or pelvis. No lymphadenopathy was noted. Normal uterus with a small left unilocular ovarian cyst suggestive of a follicular cyst. Non-complicated single sigmoid colonic contrast-filled diverticulosis. Bones and Soft Tissues: Pelvic bones and soft tissues are unremarkable. No fractures or abnormal masses were identified. IMPRESSION: 1. Normal aorta and branches, no evidence of aneurysm or dissection. 2. Gallstone. 3. Left ovarian follicular cyst. 4. Non-complicated single sigmoid colonic contrast-filled diverticulosis. 5. fatty liver. EXAM: US gallbladder CLINICAL HISTORY: Epigastric pain with gallstones. TECHNIQUE: An ultrasound examination of the RUQ was performed using a high-frequency transducer. Scanning was performed with the patient in the supine position. COMPARISON: CT dated 07/17/2024 was reviewed. FINDINGS: The visualized part of the pancreas appeared unremarkable. Liver: Liver size: The liver is seen enlarged measuring 16 cm with increased echotexture. No evidence of focal lesions, cysts, or masses. Hepatic vasculature appears normal. Gallbladder: The gallbladder is visualized and appears normal in size and shape. Stones are seen within the gallbladder neck with increased wall thickness measuring up to 6 mm. No pericholecystic fluid was seen. Degroot's sign could not be properly assessed due to medication. Biliary Tree: Common bile duct diameter: 2.7 mm. The common bile duct is within normal limits in caliber and not dilated. No evidence of choledocholithiasis or biliary obstruction. Right Kidney: Right kidney size: Measures 11.8 cm. The right kidney appears normal in size with preserved corticomedullary differentiation. No evidence of hydronephrosis, renal cysts, or masses. Additional Findings: None. IMPRESSION: 1. Fatty enlarged liver. 2. Fixed cholelithiasis with increased gallbladder wall thickening suggesting acute cholecystitis. Degroot's sign could not be properly assessed due to medication. No pericholecystic fluid was seen. 3. The common bile duct is not dilated. RECOMMENDATIONS: Clinical correlation with symptoms and further evaluation as indicated. Personally reviewed images above and concur with above findings. Code Status & VTE Plan VTE Prophylaxis Plan VTE Prophylaxis will be ordered: Yes Supervising Physician Co-Signing Physician Notes I have seen and examined the patient personally and agree with the above assessment and plan. In brief, she had sudden onset of epigastric and right upper quadrant pain with nausea in the middle of the night. Imaging demonstrates acute cholecystitis. I discussed the risks and benefits of the. All questions were answered. Consent has been obtained. Will take her to the operating room at the earliest convenience.
[2024-09-27] MEDS ORDERED: Nursing to Pharmacy Communication SCH (09:15)
[2024-09-27] MEDS ORDERED: ACETAMINOPHEN 1000 MG/100 ML IV IV ONE (09:42)
[2024-09-27] MEDS: LR 15ML/HR IV SCH (09:43)
[2024-09-27] MEDS ORDERED: LIDOCAINE 2% 2 ML VIAL/AMP(20MG/ML) INFIL ONE ×2 (09:44→15:02)
[2024-09-27] MEDS ORDERED: ONDANSETRON INJ 2 MG/ML 2 ML VIAL ONE ×2 (09:44→15:02)
[2024-09-27] MEDS ORDERED: PROPOFOL IV EMULSION 10 MG/ML 20 ML VIAL IV ONE ×2 (09:44→15:02)
[2024-09-27] MEDS ORDERED: ROCURONIUM BROMIDE 10 MG/ML 5 ML VIAL IV ONE ×2 (09:44→15:02)
[2024-09-27] MEDS ORDERED: fentaNYL citrate PF 100 MCG/2 ML VIAL ONE ×2 (09:44→15:03)
[2024-09-27] MEDS ORDERED: DEXAMETHASONE SOD INJ 4 MG/ML VIAL ONE ×2 (09:44→15:02)
[2024-09-27] MEDS ORDERED: MIDAZOLAM HCL 1 MG/ML 2ML VIAL ONE ×2 (09:45→15:02)
[2024-09-27] MEDS ORDERED: DROPERIDOL 5 MG/2 ML VIAL ONE (09:48)
[2024-09-27] MEDS ORDERED: PROMETHAZINE HCL 6.25 MG in SODIUM CHLORIDE 0.9% 50 ML IV PRN (10:03)
[2024-09-27] MEDS ORDERED: ePHEDrine sulfate 50 MG/ML AMP IV PRN (10:03)
[2024-09-27] MEDS ORDERED: ATROPINE SULFATE 0.1 MG/ML 10ML SYR IV PRN (10:03)
[2024-09-27] MEDS ORDERED: HYDROmorphone INJ 2 MG/ML SYR/VIAL IV PRN (10:03)
[2024-09-27] MEDS ORDERED: ONDANSETRON INJ 2 MG/ML 2 ML VIAL IV PRN ×2 (10:03→12:40)
[2024-09-27] MEDS ORDERED: fentaNYL citrate PF 100 MCG/2 ML VIAL IV PRN (10:03)
--- NOTE | 2024-09-27 10:05 | Anesthesiology Consultation ---
Date of Service September 27, 2024 Assessment & Plan Chart Review Chart Review: Acceptable Risk for Surgery and Patient NOT seen in Pre Admission Testing Consults Requested none ASA ASA3 Proposed Anesthesia Anesthesia Type: General Risk / Benefits Reviewed With: PT / POA / Parent / Guardian, Accepts Plan and Informed Consent Obtained History Surgery Operation Date: 09/27/24 07:00 Proposed Procedures p Laparoscopic Cholecystectomy - Uli Lira MD Height/Weight Height: 5 ft Weight: 115.8 kg Allergies Allergy/AdvReac Type Severity Reaction Status Date / Time oseltamivir [From Tamiflu] Allergy Hives Unverified 09/27/24 08:44 Medications Home Medications Medication Instructions Recorded Confirmed Last Taken albuterol sulfate 2.5 mg/3 mL 2.5 mg inhalation Q4 PRN wheeze 07/17/24 09/27/24 Unknown (0.083 %) solution for nebulization albuterol sulfate 90 mcg/actuation 2 puff inhalation Q6 PRN Wheezing 07/17/24 09/27/24 Unknown aerosol inhaler amlodipine 10 mg tablet 10 mg PO QAM 07/17/24 09/27/24 09/26/24 duloxetine 30 mg capsule,delayed 30 mg PO QAM 07/17/24 09/27/24 09/26/24 release hydrochlorothiazide 12.5 mg capsule 12.5 mg PO QAM 07/17/24 09/27/24 09/26/24 tirzepatide 5 mg/0.5 mL 5 mg subcut WK 07/17/24 09/27/24 09/20/24 subcutaneous pen injector (Addie) Active Medications Generic Name Dose Route Start Last Admin Trade Name Freq PRN Reason Stop Dose Admin Sodium Chloride 500 mls @ 125 mls/hr 09/27/24 06:15 09/27/24 06:26 Nss IV 09/27/24 10:14 125 mls/hr .Q4H LAINEY Administration Lactated Ringer's 1,000 mls @ 15 mls/hr 09/27/24 06:00 09/27/24 09:43 Lr IV 09/28/24 05:59 0 mls/hr .Q24H LAINEY Infusion NPO Date Last Intake of Fluids: 09/26/24 Time Last Intake of Fluids: 22:00 Date Last Intake of Solids: 09/26/24 Time Last Intake of Solids: 20:30 Past Medical History Medical History COVID-19 Exercise / Class Metabolic Activity II 4-5 Yardwork/Stairs/Walk up hill Past Anesthesia History No Hx of Anesthesia Complications and No Family Hx of Anesthesia Complications History of PONV No Hx of PONV and No Hx of Motion Sickness Social History Smoking Status: Never smoker Physical Exam Vital Signs Last Vital Signs Temp 37 C 09/27/24 09:32 Pulse 87 09/27/24 09:32 Resp 20 09/27/24 09:32 BP 149/102 H 09/27/24 09:32 Pulse Ox 99 09/27/24 09:32 O2 Del Method Room Air 09/27/24 09:32 Constitutional + obese ENMT Mouth: no dentition abnormality Thyromental Distance: > or= 3.5 Finger Breadths Mallampati Class: II Neck normal visual inspection Respiratory normal respiratory effort Auscultation: lungs clear to auscultation bilaterally Cardiovascular Rate/Rhythm: regular rate and regular rhythm Psychiatric Orientation: alert Testing Laboratory Results 09/27/24 01:31 09/27/24 01:31 09/27/24 09:42 POC Ur Test NEG
[2024-09-27] MEDS: ceFAZolin 2000MG 2,000 MG/15 ML SYR IV ONE ×2 (10:09→10:49)
[2024-09-27] MEDS ORDERED: HYDROmorphone INJ 2 MG/ML SYR/VIAL ONE (10:27)
[2024-09-27] MEDS: ceFAZolin 3000MG 3,000 MG/72.5 ML BAG IV ONE (10:33)
[2024-09-27] MEDS ORDERED: PHENYLEPHRINE 100MCG/ML 5ML SYR ONE (10:33)
[2024-09-27] MEDS: BUPIVACAINE/EPINEPHRINE 0.25% 1:200,000 30 ML VIAL ONE (11:12)
--- NOTE | 2024-09-27 11:15 | Operative Report ---
Post Operative Report Pre & Post Diagnosis Operation Date: 09/27/24 07:00 Pre-Op Diagnosis: Acute calculous cholecystitis Post-Op Diagnosis: Acute calculous cholecystitis I identified the patient and participated in the time-out.: Yes Procedure Operation Date: 09/27/24 07:00 Actual Procedures p Laparoscopic Cholecystectomy(Not Applicable) - Uli Lira MD Surgeon Uli Lira MD Cultural Centre Manager GISELLA Ames assisted with tissue retraction, camera op, closure Estimated Blood Loss 5 Findings Consistent with Post-Op Diagnosis acute inflammation consistent with acute cholecystitis Specimens gallbladder Drains none Anesthesia Type General Complications none Description of Procedure the patient was taken to the operating room, and placed supine on the operating table. A timeout was performed, perioperative antibiotics were administered, SCD boots were placed. After adequate anesthesia and analgesia was obtained, the abdomen was prepped and draped in the normal sterile fashion. Local anesthetic was injected into and around the proposed incision sites. An incision was made with a 15 blade scalpel in the supraumbilical region and carried down to the level of the fascia. The fascia was grasped with a trach hook, and a varies needle was used to enter the abdominal cavity. The abdomen was insufflated to a pressure of 15 mmHg, and a 11 mm trocar was placed in this location. A 10 mm, 30 degree laparoscope was placed into the abdominal cavity, and the abdomen was surveyed. Two 5 mm trochars were placed along the right costal margin, and one 5 mm trocar was placed in the subxiphoid region under direct visualization. The gallbladder was grasped and retracted cephalad and laterally, exposing the triangle of Calot. Dissection began in the triangle with a combination of blunt dissection with the [place] dissector, and judicious use of the hook cautery. The cystic duct and cystic artery were dissected free circumferentially, and a critical view of safety was obtained. The cystic duct and cystic artery were clipped and transected, and the gallbladder was removed from the gallbladder fossa with the hook cautery. The camera was switched to a 5 mm, the gallbladder was placed in an Endo Catch bag, and removed via the supraumbilical port site. The camera was switched back to the 10 mm camera, and the abdomen was surveyed again. Hemostasis was checked and attended, and was excellent. The abdomen was copiously irrigated and suctioned free. Again hemostasis was checked and was excellent. All trochars were removed under direct visualization. The abdomen was desufflated. The fascia in the 11 mm port site was closed with a 0 Vicryl suture. The skin was closed with a running 4-0 Monocryl subcuticular stitch. Dermabond was applied. The patient tolerated the procedure without complication, and was transferred in stable condition to the PACU. All instrument, needle, and sponge counts were correct at the end of the case. My operations and intelligence assistant was necessary throughout the procedure for tissue retraction, possible camera operation, and closure of the wounds. I understand that section 1842(b)(7)(D) of the Social Security act generally prohibits Medicare physician fee schedule payment for the services of assistants at surgery in teaching hospitals when qualified residents are available to furnish such services. I certify that the services for which payment is claimed were medically necessary and that no qualified resident was available to perform the services. I further understand that these services are subject to postpayment review by the Medicare carrier. I attest to the content of the Intraoperative Record and any orders documented therein. Any exceptions are noted below.
[2024-09-27] MEDS ORDERED: KETOROLAC 30 MG/ML VIAL ONE (11:17)
--- NOTE | 2024-09-27 12:25 | Anesthesiology Progress Note ---
Date of Service September 27, 2024 Anesthesia Post Procedure Vital Signs Vital Signs: Temp Pulse Pulse Pulse Resp BP BP 09/27/24 12:10 36.8 C 87 17 144/82 H 09/27/24 12:00 80 17 127/83 09/27/24 11:50 94 H 25 H 138/87 09/27/24 11:40 83 21 127/88 09/27/24 11:32 36.2 C L 85 16 137/83 09/27/24 09:32 37 C 87 20 149/102 H 09/27/24 09:17 09/27/24 09:06 85 17 09/27/24 09:00 150/107 H 09/27/24 08:57 86 14 09/27/24 08:03 101 H 20 09/27/24 08:01 176/116 H 09/27/24 07:30 154/105 H 09/27/24 07:30 81 16 09/27/24 07:06 93 H 18 09/27/24 07:01 132/100 09/27/24 06:06 84 17 09/27/24 05:41 89 09/27/24 05:30 86 14 09/27/24 05:15 87 17 155/102 H 09/27/24 04:30 82 16 148/96 H 09/27/24 04:00 90 16 164/133 H 09/27/24 03:30 85 15 151/105 H 09/27/24 02:33 88 17 165/107 H 09/27/24 02:16 90 18 172/122 H 09/27/24 01:51 09/27/24 01:33 93 H 09/27/24 01:22 36.6 C 100 H 18 153/92 H Pulse Ox O2 Del Method O2 Flow Rate 09/27/24 12:10 98 Nasal Cannula 4 09/27/24 12:00 96 Nasal Cannula 4 09/27/24 11:50 93 Nasal Cannula 2 09/27/24 11:40 98 Oxymask 4 09/27/24 11:32 97 Oxymask 4 09/27/24 09:32 99 Room Air 09/27/24 09:17 Room Air 09/27/24 09:06 96 Room Air 09/27/24 09:00 09/27/24 08:57 95 Room Air 09/27/24 08:03 98 Room Air 09/27/24 08:01 09/27/24 07:30 09/27/24 07:30 97 Room Air 09/27/24 07:06 95 09/27/24 07:01 09/27/24 06:06 96 09/27/24 05:41 09/27/24 05:30 91 09/27/24 05:15 97 09/27/24 04:30 95 Room Air 09/27/24 04:00 95 Room Air 09/27/24 03:30 93 Room Air 09/27/24 02:33 95 Room Air 09/27/24 02:16 98 Room Air 09/27/24 01:51 95 Room Air 09/27/24 01:33 09/27/24 01:22 98 Room Air Pain Intensity Upper Abdomen: Pain Intensity: 1 Transfer of Care Handoff Completed per policy Notes Mental Status: alert / awake / arousable Patient Amnestic to Procedure: Yes Nausea / Vomiting: adequately controlled Pain: adequately controlled Airway Patency, RR, SpO2: stable & adequate BP & HR: stable & adequate Hydration State: stable & adequate Anesthetic Complications: no major complications apparent
[2024-09-27] MEDS ORDERED: diphenhydrAMINE Capsule 25 MG CAP PO PRN (12:40)
[2024-09-27] MEDS ORDERED: PROMETHAZINE 12.5 MG/50.5 ML BAG IV PRN (12:40)
[2024-09-27] MEDS ORDERED: MoRPHine SULFATE 2 MG/ML CARP IV PRN (12:40)
[2024-09-27 14:21] LABS: Appearance Urine Clear (Clear); Bacteria Urine Automated None Seen (None Seen); Bilirubin Urine Negative (Negative); Blood Urine Negative (Negative); Cast Urine Automated 0-2 /lpf (0-2); Color Urine Yellow; Glucose Urine UA Negative (Negative); Ketones Urine Negative (Negative); Leukocyte Esterase Urine Negative (Negative); Nitrite Urine Negative (Negative); Protein Urine 1+ (Negative); RBC Urine Automated 0-2 /hpf (0-2); Specific Gravity Urine 1.023 (1.000-1.030); Urobilinogen Urine Negative (Negative); WBC Urine Automated 0-5 /hpf (0-5); pH Urine 6.5 (4.5-7.5)
[2024-09-27 15:57] VITALS: RESP 18
[2024-09-27] MEDS: oxyCODONE/ACETAMINOPHEN 5mg/325mg TAB PO PRN ×2 (17:11→23:21)
[2024-09-27] MEDS: KETOROLAC 30 MG/ML VIAL IV PRN (21:59)
[2024-09-27] MEDS: ENOXAPARIN INJ 40 MG/0.4 ML SYR SQ SCH (22:00)
--- NOTE | 2024-09-27 22:59 | Electrocardiogram Report ---
Test Reason : Blood Pressure : */* mmHG Vent. Rate : 90 BPM Atrial Rate : 90 BPM P-R Int : 132 ms QRS Dur : 82 ms QT Int : 352 ms P-R-T Axes : 51 22 31 degrees QTcB Int : 430 ms Normal sinus rhythm Normal ECG When compared with ECG of 11-Jan-2024 14:30, Nonspecific T wave abnormality, improved in Inferior leads Nonspecific T wave abnormality no longer evident in Lateral leads Confirmed by Alberto Charles ([id number]) on 09/27/2024 10:59:24 PM Referred By: REFERRED SELF Confirmed By: Alberto Charles
[2024-09-28] MEDS: amLODIPine BESYLATE 5 MG TAB PO STA (00:41)
[2024-09-28] MEDS: hydroCHLOROthiazide 25 MG TAB PO STA (00:41)
[2024-09-28] MEDS: amLODIPine BESYLATE 5 MG TAB PO ONE (00:46)
[2024-09-28] MEDS: amLODIPine BESYLATE 5 MG TAB PO SCH (09:11)
[2024-09-28] MEDS: hydroCHLOROthiazide 25 MG TAB PO SCH (09:11)
--- NOTE | 2024-09-28 09:33 | Discharge Summary ---
Date of Service September 28, 2024 Admission HPI Per Admitting Provider Sheila is a pleasant 39 yo female with history of hypertension, asthma, depression, prediabetes who presented to emergency department last evening due to sudden onsent of epigastric abdominal pain that woke her up. Associated nausea but no vomiting. Pain was in epigastrium with some bloating and radiated to her chest. Pain about 8/10. Some shortness of breath due to the abdominal pain but no persistent chest pain , pressure or shortness of breath. Was feeling completely normal yesterday during the day. KNew she had gallstones but no prior gallbladder issues. Has IBS with intermittent constipation and huy rrhea. Denies fever, chills, vomiting, changes in bowel habits, blood in stools, acholic stools, difficulty urinating or blood in urine. On Mounjaro since June, takes weekly. Last dose was last Thursday. Was on Ozempic prior to that but not consistent. has lost about 20 pounds with the two medications. No blood thinning agents. History of two prior c-sections. Currently feeling much better. pain about 1/10 in epigastrium and RUQ. No nausea. Principal Diagnosis Acute calculous cholecystitis Discharge Exam Constitutional WD/WN, vitals as above + obese, cooperative and comfortable; no acute distress and not ill appearing Respiratory normal respiratory effort, lungs clear to auscultation Cardiovascular RRR, no murmur, no edema Gastrointestinal (Abdomen) Inspection/Auscultation: abdomen normal to inspection and + abdominal surgical incision (c/d/i with dermabond); abdomen not distended Percussion/Palpation: + abdomen tender (mild at incision sites, appropriate postop) and abdomen soft; no guarding and abdomen not rigid Skin no rashes, warm and dry Psychiatric A+Ox3, euthymic affect Discharge Data Allergies Allergy/AdvReac Type Severity Reaction Status Date / Time oseltamivir [From Tamiflu] Allergy Hives Unverified 09/27/24 08:44 Consultations 09/27/24 06:15 ED Decision to Admit Stat Procedures Performed Operation Date: 09/27/24 07:00 Actual Procedures p Laparoscopic Cholecystectomy(Not Applicable) - Uli Lira MD Ordered Studies 09/27/24 01:51 CTA chest dissec wo/w con [CT angio chest dissec wo/w con] Stat 09/27/24 01:52 CT angio abd pelvis wo/w con Stat 09/27/24 04:36 US gallbladder Stat Hospital Course (1) Acute calculous cholecystitis: Plan Patient taken to operating room from emergency department for laparoscopic cholecystectomy on 09/27/2024. Patient found to have acute cholecystitis and tolerated procedure without difficulty. She was transferred to med/surg floor for postoperative care. Diet advanced as tolerated, pain management as needed, antiemetics as needed, and activity as tolerated. BP was elevated overnight in which home dose of amlodipine and HTCZ was given in which blood pressure was improved. POD # 1, avss, postop pain controlled with pain medicaiton, tolerated diet, and no n,v. Ambulated hallway and urinating without difficulty. Patient discharged home on POD # 1 in stable condition. Total Time Total Time Spent Total Time Spent (In Minutes): 20 Total Time Includes: Examination of the Patient, Discharge Planning and Medication Reconciliation Discharge Plan Discharge Items Patient Disposition: Home - Self-Care Reason For Visit: PAIN IN UPPER ABDOMIN Discharge Diagnosis: Acute calculous cholecystitis Activity: Per Instructions section Non-emergency contact: Primary Care Provider and Surgeon Call non-emergency contact if: you have any medication questions, your symptoms worsen, your pain is worsening, you have a fever, your temperature is above 101, your wound has increased redness, your wound has increased drainage and your wound pain has increased Follow-up/Referrals: Elliott Ireland MD [Primary Care Provider] - Katya Ames PA-C [Physician Cold Patcher] - Diet: Regular Addtl Attending Provider Instructions: Post-Surgical ~Discharge Instructions Activity Recommendations: - lifting limitation: (20 pounds for 2-3 weeks), - exercise/sex/sports limit: (nonstrenuous for 2 weeks), - driving or machine use limit: (none for at least 3 days and up to 1 week,, no driving while still having pain or taking narcotic pain medication), - Shower/bathe limit: (may shower, no submerging incisions underwater for 2 weeks (no bathing, swimming, hot tubs)) Diet: - Resume previous diet SPECIAL CARE INSTRUCTIONS: - May shower.. Let water run over area and pat dry. - Leave surgical glue on incisions, this will fall off on its own. - Call the surgeon's office with any questions or concerns - - (ex. temperature higher than 101 degrees F, excessive bleeding or pain). MEDICATIONS: - Resume previous medications unless instructed otherwise by your surgeon. - May alternate extra strength Tylenol and Ibuprofen as needed for mild to moderate pain -650 mg Tylenol every 6 hours as needed - Ibuprofen 600 mg every 6 hours as needed (take with food) - Percocet 1 every 6 hours, as needed for moderate to severe pain - Recommend daily stool softener (Colace) while taking narcotic pain medication to prevent constipation or straining. Drink plenty of water daily. FOLLOW UP VISIT: - If not already scheduled, please call the office to schedule a two week follow-up appointment. Office number Pending Studies at Discharge: Yes (gallbladder pathology, will be reviewed at postop visit) Stand-Alone Forms: My [facility] [employer] Video Shopping, Smoking Cessation Medications and DC Order Prescriptions: New oxycodone-acetaminophen 5-325 mg tablet 1 tab PO Q6H PRN (Reason: pain) Qty: 10 0RF Continued albuterol sulfate 2.5 mg /3 mL (0.083 %) solution for nebulization 2.5 mg inhalation Q4 PRN (Reason: wheeze) amlodipine 10 mg tablet 10 mg PO QAM hydrochlorothiazide 12.5 mg capsule 12.5 mg PO QAM albuterol sulfate 90 mcg/actuation HFA aerosol inhaler 2 puff INHALATION Q6 PRN (Reason: Wheezing) Rx Instructions: when sick she uses every 4 hours prn duloxetine 30 mg capsule,delayed release(DR/EC) 30 mg PO QAM Rx Instructions: with food Mounjaro 5 mg/0.5 mL pen injector 5 mg SUBCUT WK Rx Instructions: Thursday Discharge Orders: Discharge Order (Routine); Ordered 09/28/24 Ordered By: Katya Ames Admission Data Admit Date/Time: 09/27/24 11:20 Attending Provider: Uli Lira Admit Provider: Uli Lira Primary Care Provider: Elliott Ierland Other Providers: Uli Lira
[2024-09-28 11:11] VITALS: BP 131/54; PULSE 89; TEMP 98.1; O2SAT 97
[2024-09-28] MEDS: INFLUENZA VACC TS2024-25(6m+)/PF (IIV3) 0.5mL Syr IM ONE (12:24)
== END 2024-09-28 12:54 | disposition home or self-care (01) ==
LOC: ED 01:12 → 3E 01:12